=== PATIENT | female | born 1990 | race Caucasian/White ===

== ENCOUNTER 2020-10-11 04:44 | Emergency (ER) | payer MEDICAID ==
[~2020-10-11] VITALS: Ht 162.6 cm; Wt 69.0 kg
--- NOTE | ~2020-10-11 | EMS ---
[facility] [address] [place] [address] EMS Patient Care Report Name: PAWAN GALDAMEZ Room: [facility]#: [id number] Admission: 10/11/20 Attend Phys: Discharge: 10/11/20 Date of : [birth year] Report #: [id number] THIS REPORT FOR: //name// Report Transmitted: 10/11/2020 05:02 EMS Care Summary [facility] [place] Incident [id number] @ 10/11/2020 04:16 Incident Location [address] [place], [place] [address] Patient pawan galdamez Female, 30 Years 1990 Patient Address [address] [place] [address] Patient History Bipolar disorder, unspecified,Schizoaffective Disorder, Patient Allergies No known allergies, Chief Complaint Pain-extremity lower Disposition Transported No Lights/[place] Dispatch Reason Unknown Problem/Person Down Transported To [facility] Narrative Medic 322 was dispatched for a 911 call for a psych issue. Medic 322 arrived on scene to find a female subject talking with PD and Medic 300. The patient was complaining of cellulitis in her feet and she took some little blue pills. She did not know what pills she took. The patient kept changing her complaint and stories. Medic 322 started an assessment on the patient. Medic 322 assisted/ walked the patient to the ambulance and had her sit on the litter. The patient [facility] [address] [place] [address] EMS Patient Care Report Name: PAWAN GALDAMEZ Room: [facility]#: [id number] Admission: 10/11/20 Attend Phys: Discharge: 10/11/20 Date of : [birth year] Report #: [id number] was secured to the [facility] using all the straps provided. Once in the back of the ambulance Karol Garcia continued her assessment on the patient. CarolineAlma Emmanuel took a set of vitals on the patient about every ten to fifteen minutes. The patient was not cooperating with Karol Garcia and answering questions. She wanted to be transported to [place]. Medic Jose arrived at [place] and transported the patient to her room using the litter. The patient slid herself over to the hospital bed. Medic Jose gave a verbal report to the nurse, and transferred patient care to the nurse. HIPAA was signed by the nurse. Reed Benitez EMT-p #[id number] Initial Vitals @04:29P: 88,R: 18,BP: 145/79, @04:39P: 76,R: 18,BP: 150/76, @04:29GCS: 15, @04:39GCS: 15, Assessments @04:28MENTAL:SKIN:HEENT:LUNG SOUNDS:ABDOMEN:PELVIS//GI:EXTREMITIES:PULSE:NEURO: Impression Mental disorder Timeline 04:16,Call Received 04:16,Dispatch Notified 04:16,Psap Call 04:16,Dispatched 04:16,En Route 04:26,On Scene 04:28,At Patient 04:29,BP: 145/79 M,PULSE: 88,RR: 18 R,SPO2: Ox,ETCO2: ,BG: ,PAIN: ,GCS: , 04:29,BP: / M,PULSE: ,RR: R,SPO2: Ox,ETCO2: ,BG: ,PAIN: ,GCS: 15, 04:31,Depart Scene 04:39,BP: 150/76 M,PULSE: 76,RR: 18 R,SPO2: Ox,ETCO2: ,BG: ,PAIN: ,GCS: , 04:39,BP: / M,PULSE: ,RR: R,SPO2: Ox,ETCO2: ,BG: ,PAIN: ,GCS: 15, 04:42,At Destination 04:54,Call Closed Disclaimer v1.1 Copyright 2020 [employer] This EMS Care Summary contains data elements from the applicable legal record (which may be displayed differently). It is designed to provide pertinent information for the following purposes: continuity of care, clinical quality, and state data reporting. The [place] [address] EMS Patient Care Report Name: PAWAN GALDAMEZ [facility] [id number] Admission: 10/11/20 Attend Phys: Discharge: 10/11/20 Date of : [birth year] Report #: [id number] and administrators of the receiving hospital in [facility]'s Patient Tracker. All data is provided "as is."
[~2020-10-11 04:44] MED LIST: BRINTELLIX5 MG PO; CLEOCIN HCL150 MG PO; DOXYCYCLINE 10100 MG PO; HYDROCODONE-AP1 EAC6 PO; MEDROLDOSEPACK PO; NAPROSYN500 MG PO; NOHOMEMEDICATIONS; NORCO 5-325 TA1 EACH PO; PRAZOSIN HCL5 MG PO; ROBAXIN500 MG PO; SEROQUEL 50 MG50 MG PO; TRAMADOL 50 MG50 MG PO; TRILEPTAL300 MG; VISTARIL 25 MG25 M1 PO; ZYPREXA5 MG PO
[2020-10-11] MEDS ORDERED: KETOCONAZOLE15 GM TOP (04:55)
[2020-10-11] MEDS ORDERED: DIFLUCAN150 M1 PO (04:55)
[2020-10-11] MEDS ORDERED: INVEGA SUS156 MG/1 M IM (05:07)
[2020-10-11 05:26] VITALS: BP 127/57
== END 2020-10-11 05:36 | disposition home or self-care (01) ==
LOC: M.ERS 04:44
DX: B35.3 Tinea pedis (principal); Z90.89 Acquired absence of other organs; Z79.899 Other long term (current) drug therapy

== ENCOUNTER 2020-11-24 23:30 | Emergency (ER) | payer MEDICAID ==
[~2020-11-24] VITALS: Ht 162.6 cm; Wt 69.4 kg
[~2020-11-24 23:30] MED LIST changes: +DIFLUCAN150 M1 PO; +INVEGA SUS156 MG/1 M IM; +KETOCONAZOLE15 GM TOP
[2020-11-24 23:42] LABS: URINE BILIRUBIN NEGATIVE (Negative); URINE BLOOD TRACE (Negative); URINE CLARITY CLOUDY; URINE COLOR YELLOW; URINE GLUCOSE-RANDOM NEGATIVE (Negative); URINE KETONES TRACE (Negative); URINE LEUKOCYTES-REFLEX TRACE (Negative); URINE PROTEIN TRACE (Negative); URINE SPECIFIC GRAVITY 1.025 (1.005-1.030)
[2020-11-24 23:43] LABS: URINE NITRITE-REFLEX POSITIVE (Negative)
[2020-11-24 23:49] LABS: BACTERIA-REFLEX >30 Many /HPF (None Seen); CASTS None Seen /LPF (None Seen); CRYSTALS None Seen /LPF (None Seen); MUCUS 0-3 Light strn/LPF (None Seen); SQUAMOUS 0-3 Few /LPF (0-3); TRANSITIONAL EPITHEL CELL 0-3 Few /LPF (None Seen)
[2020-11-24 23:52] LABS: AMP/METHAMP POSITIVE (Negative); BARBITURATES Negative (Negative); BENZODIAZEPINES Negative (Negative); COCAINE Negative (Negative); METHADONE Negative (Negative); OPIATES Negative (Negative); PCP Negative (Negative); THC POSITIVE (Negative)
[2020-11-25 00:23] LABS: ABSOLUTE EOSINOPHILS 0.2 thou/uL (0.0-0.7); ABSOLUTE LYMPHOCYTES 2.6 thou/uL (0.8-5.3); ABSOLUTE NEUTROPHILS 3.4 thou/uL (1.6-8.1); BASOPHILS 0.5 %; EOSINOPHILS 2.8 %; HEMATOCRIT 38.4 % (37.0-47.0); HEMOGLOBIN 12.3 gm/dL (12.0-15.0); LYMPHOCYTES 35.8 %; MCH 26.3 pg (26.0-34.0); MCHC 32.1 g/dL (28.0-37.0); MONOCYTES 14.1 %; NUCLEATED RBCS 0 /100WBC; PLATELET COUNT* 370 thou/uL (150-400); POLYS 46.8 %; RBC 4.68 mil/uL (4.20-5.00); RDW-CV 13.9 % (10.5-14.5); WBC 7.3 thou/uL (4.0-11.0)
[2020-11-25 00:25] LABS: CALCIUM 8.6 mg/dL (8.5-10.1); POTASSIUM 3.1 mmol/L (3.5-5.1)
[2020-11-25 00:30] LABS: ALBUMIN 3.3 g/dL (3.4-5.0); TOTAL BILIRUBIN 0.3 mg/dL (<0.1-1.0); TOTAL PROTEIN 6.4 g/dL (6.4-8.2)
[2020-11-25 00:38] LABS: ACETAMINOPHEN < 2 ug/mL (10-30); ALCOHOL < 10 mg/dL (<10)
[2020-11-25] MEDS ORDERED: BACTRIM DS TAB1 EACH PO (01:36)
[2020-11-25 01:49] VITALS: BP 106/57
== END 2020-11-25 01:49 | disposition short-term general hospital (02) ==
LOC: M.ERS 23:30
PROVIDERS: Emergency Medicine
DX: N39.0 Urinary tract infection, site not specified (principal); F22 Delusional disorders; F15.10 Other stimulant abuse, uncomplicated; Z20.822 Contact with and (suspected) exposure to COVID-19; M06.9 Rheumatoid arthritis, unspecified; Z90.89 Acquired absence of other organs